=== PATIENT | female | born 1960 | race Two or more races ===

== ENCOUNTER 2023-05-28 15:13 | Emergency (ER) | payer MEDICAID, OTHER ==
[~2023-05-28] VITALS: Ht 162.6 cm; Wt 78.1 kg
[2023-05-28 16:47] LABS: Basophils # (auto) 0 10 ^3/uL (0-0.2); Basophils % (auto) 0.7 % (0.0-2.0); Eosinophils # (auto) 0.2 10 ^3/uL (0-0.8); Eosinophils % (auto) 2.7 % (0.0-7.0); Hematocrit 41.6 % (36.0-46.0); Hemoglobin 13.8 g/dL (12.2-16.2); Lymphocytes # (auto) 2.5 10 ^3/uL (0.4-5.4); Lymphocytes % (auto) 37.2 % (10.0-50.0); Mean Corpuscular Hemoglobin 30.2 pg (28.0-32.0); Mean Corpuscular Hgb Conc. 33.2 g/dL (32.0-36.0); Mean Corpuscular Volume 90.8 fL (80.0-100.0); Monocytes # (auto) 0.5 10 ^3/uL (0-1.3); Monocytes % (auto) 7.1 % (0.0-12.0); Neutrophils # (auto) 3.5 10 ^3/uL (1.6-8.6); Neutrophils % (auto) 52.3 % (37.0-80.0); Nucleated Red Blood Cells % 0.1 %; Red Blood Cells 4.58 10^6/uL (4.0-5.20); Red Cell Distribution Width 13.5 % (11.8-14.3); White Blood Cell 6.7 10^3/uL (4.4-10.8)
[2023-05-28 17:03] LABS: Alanine Aminotransferase 25 U/L (7-40); Albumin 4.5 g/dL (3.2-4.8); Alkaline Phosphatase 69 U/L (46-116); Anion Gap 8 (5-15); Aspartate Aminotransferase 17 U/L (13-40); BUN/Creatinine Ratio 14.6 (10.0-20.0); Bilirubin, Total 0.6 mg/dL (0.2-1.0); Blood Urea Nitrogen 14 mg/dL (9-23); Calcium 9.2 mg/dL (8.7-10.4); Carbon Dioxide 26 mmol/L (20-30); Chloride 106 mmol/L (98-107); Glucose 217 mg/dL (74-106); Potassium 3.9 mmol/L (3.5-5.1); Sodium 140 mmol/L (136-145)
[2023-05-28 17:04] LABS: Total Protein 6.7 g/dL (5.7-8.2)
[2023-05-28 20:17] VITALS: BP 121/53; TEMP 97.4; O2SAT 95
[2023-05-28] MEDS ORDERED: PROC10TA6 PO (20:55)
[2023-05-28] MEDS ORDERED: DIPH25CA51 PO (20:55)
[2023-05-28] MEDS ORDERED: CEPH250C PO (21:27)
[2023-05-28 21:45] VITALS: PULSE 74; RESP 17
== END 2023-05-28 21:53 | disposition home or self-care (01) ==
LOC: ER 15:13
DX: J32.9 Chronic sinusitis, unspecified (principal); R94.31 Abnormal electrocardiogram [ECG] [EKG]
CPT/HCPCS: 36415; 70450; 80053; 84484; 85025; 93005